=== PATIENT | female | born 1990 | race Caucasian/White ===

== ENCOUNTER 2021-10-10 16:29 | Emergency (ER) | payer OTHER ==
[~2021-10-10] VITALS: Ht 152.4 cm; Wt 68.0 kg
[2021-10-10] MEDS ORDERED: SYNTHROID150 MCG (16:35)
== END 2021-10-10 19:44 | disposition home or self-care (01) ==
LOC: ER 16:29
DX: R25.2 Cramp and spasm (principal); Z91.013 Allergy to seafood; E03.9 Hypothyroidism, unspecified